=== PATIENT | female | born 1950 | race Two or more races ===

== ENCOUNTER 2017-07-08 15:14 | Emergency (ER) | payer MEDICARE, OTHER ==
[~2017-07-08] VITALS: Ht 157.5 cm; Wt 74.4 kg
[2017-07-08 15:47] VITALS: BP 126/66
== END 2017-07-08 17:17 | disposition home or self-care (01) ==
LOC: ER 15:14
DX: S52.501A Unspecified fracture of the lower end of right radius, initial encounter for closed fracture (principal); S52.611A Displaced fracture of right ulna styloid process, initial encounter for closed fracture; I11.0 Hypertensive heart disease with heart failure; I50.9 Heart failure, unspecified; E11.9 Type 2 diabetes mellitus without complications; E78.5 Hyperlipidemia, unspecified; W19.XXXA Unspecified fall, initial encounter; Y93.9 Activity, unspecified; Y99.8 Other external cause status; Y92.89 Other specified places as the place of occurrence of the external cause
CPT/HCPCS: 73110